=== PATIENT | male | born 1995 | race Caucasian/White ===

== ENCOUNTER 2016-05-12 00:32 | Day surgery (SDC) | payer OTHER ==
[~2016-05-12] VITALS: Ht 182.9 cm; Wt 68.0 kg
[2016-05-12] MEDS ORDERED: Vancomycin Inj 1,500 MG in 0.9% Sodium Chloride 500 ML IV ONE (16:00)
[2016-05-12] MEDS ORDERED: Ertapenem Inj 1,000 MG in 0.9% Sodium Chloride 50 ML IV ONE (16:05)
[2016-05-12] MEDS ORDERED: INSU100I25 SQ (16:16)
[2016-05-12 16:25] VITALS: BP 107/82; PULSE 113; RESP 16; O2SAT 97
[2016-05-12 17:08] LABS: BASOPHILS % (AUTO) 0.9 % (0-3); EOSINOPHILS % (AUTO) 5.6 % (0-5); MONOCYTES % (AUTO) 9.1 % (4-12); Mean Corpuscular Volume 86.3 fL (81-100); NEUTROPHILS % (AUTO) 45.9 % (40-74); Platelet Count 367 bil/L (150-400)
--- NOTE | 2016-05-12 18:47 | NUR ---
Antibiotics Patient arrived to unit from PICC suite. Carenotes provided for PICC line care, vancomycin and Ertapenem. Labs drawn. Antibiotics infused without adverse reaction. Left unit in wheelchair, pushed by friend.
--- NOTE | 2016-05-12 23:27 | PCM.CONPHA ---
Subjective Date of Service: May 12, 2016 Reason for Pharmacy Consult: Vancomycin Dosing Objective Vital Signs Date Time Temp Pulse Resp B/P Pulse Ox O2 Delivery O2 Flow Rate FiO2 05/12/16 16:25 36.6 113 16 107/82 97 Room Air Weight (Kilograms): 68.000 Height (Feet): 6 Test 05/12/16 16:40 White Blood Count 9.9th/mm3 (3.8-10.1) Red Blood Count 4.60mil/mm3 (4.40-5.80) Hemoglobin 13.8g/dL (13.8-17.2) Hematocrit 39.7% (41.0-50.0) Mean Corpuscular Volume 86.3fL (81-100) Mean Corpuscular Hemoglobin 30.0pg (27.0-35.0) Mean Corpuscular Hemoglobin Concent 34.8% (32.0-37.0) Red Cell Distribution Width 11.8% (12.3-15.4) Platelet Count 367bil/L (150-400) Neutrophils (%) (Auto) 45.9% (40-74) Lymphocytes (%) (Auto) 36.4% (14-46) Monocytes (%) (Auto) 9.1% (4-12) Eosinophils (%) (Auto) 5.6% (0-5) Basophils (%) (Auto) 0.9% (0-3) Hold Purple Top Tube Received (Received) Blood Urea Nitrogen 19mg/dL (6-20) Creatinine 0.49mg/dL (0.76-1.27) Hold Bowie Top Tube Received (Received) Assessment/Plan Assessment/Plan ; Vanco per Rx Indication: Osteomy;itis LD 1500mg Also Ertapenum per Rx 1000mg daily Scar Calderon PharmD May 12, 2016 23:27
== END 2016-05-12 23:59 | disposition home or self-care (01) ==
LOC: MOCO 00:32
PROVIDERS: ATTEND Podiatrist
DX: M86.8X8 Other osteomyelitis, other site (principal)
CPT/HCPCS: 36415; 82565; 84520; 85025; J3370; J7040